=== PATIENT | male | born 1980 | race Caucasian/White ===

== ENCOUNTER 2023-11-08 01:48 | Emergency (ER) | payer SELFPAY ==
[2023-11-08 01:56] VITALS: BP 137/87; PULSE 90; RESP 20; TEMP 36.6; O2SAT 100; BMI 22.8
--- NOTE | 2023-11-08 01:56 | ECG_ITS ---
[facility] Test Date: 2023-11-08 Pat Name: Kevan Zazueta Department: Room: Gender: Male [employer]: : 1980 Requested By: Aylin Xavier Order Number: [id number] Juan MD: Khushboo Sharma M.D. Measurements Intervals [place] Rate: 96 P: 68 [place]: 108 QRS: 71 QRSD: 91 T: 56 QT: 360 QTc: 457 Interpretive Statements SINUS RHYTHM WITH SHORT [place] INTERVAL POSSIBLE LEFT ATRIAL ENLARGEMENT [-0.1mV P-WAVE IN V1/V2] No previous ECG available for comparison Electronically Signed On 11-09-2023 20:15:20 CDT by Khushboo Sharma M.D. [email or web address]
--- NOTE | 2023-11-08 01:56 | XRR_ITS ---
PROCEDURE INFORMATION: Exam: XR Chest Exam date and time: 11/08/2023 2:48 AM Age: 43 years old Clinical indication: Chest pressure; Patient HX: PT C/O chest pain over last few days. Tachycardic on monitor; Additional info: Cp TECHNIQUE: Imaging protocol: Radiologic exam of the chest. Views: 1 view. COMPARISON: No relevant prior studies available. FINDINGS: Lungs: Multiple left basilar lung nodules are present. Partially calcified hilar lymph nodes are present. Pleural spaces: Unremarkable. No pleural effusion. No pneumothorax. Heart/Mediastinum: Unremarkable. No cardiomegaly. Bones/joints: Mild dextroconvex curvature of the midthoracic spine. Incompletely fused mid shaft left clavicle fracture. XR/XR chest 1V portable [id number] IMPRESSION: 1. No acute cardiopulmonary findings. 2. Left lower lobe nodules which can be better assessed by CT on an outpatient basis (likely granulomas). 3. Sequela of granulomatous disease
--- NOTE | 2023-11-08 02:07 | ED_ITS ---
HPI - Chest Pain General: Chief Complaint: Chest Pain Stated Complaint: Chest pain, Palpitations Time Seen by Provider: 11/08/23 01:54 Source: patient Mode of arrival: ambulatory Limitations: no limitations History of Present Illness: 43-year-old male who states has been hav ing chest pain for the last 4 days. States pains been sharp in nature he denies any cough or fever. States he feels like his heart is racing as well. Has been having some back pain. He has history of drug abuse states he did use heroin meth and cocaine 2 or 3 days ago. Associated symptoms: Deny abdominal pain, dyspnea, fever(s), nausea or vomiting Review of Systems Const: Denies: fever(s), chills, body aches or change in appetite Eyes: Denies: blurry vision or eye discomfort ENMT: Denies: throat pain or dental pain Card: Reports: chest pain Resp: Denies: dyspnea GI: Denies: abdominal pain, nausea, vomiting or diarrhea Musc: Reports: back pain; Denies: neck pain Skin/Breast: Denies: rash Neuro: Denies: headache(s) Physical Exam Const: COMMON NORMALS: no acute distress, patient oriented x3 and healthy appearing HENMT: COMMON NORMALS: normocephalic and atraumatic HEAD & SCALP: normocephalic and atraumatic Eye: COMMON NORMALS: Equal, round and reactive pupils present and EOMs intact bilaterally PUPIL: Yes Equal, round and reactive pupils present Neck/C-Spine: COMMON NORMALS: full ROM and supple Chest: COMMONS NORMALS: normal inspection of the chest and normal palpation of entire chest wall Resp: COMMON NORMALS: normal respiratory effort, No retractions, No use of accessory muscles and clear to auscultation bilaterally AUSCULTATION: clear to auscultation bilaterally Cardio: COMMON NORMALS: regular rate, regular rhythm and No murmurs present (Cardio) RATE: regular rate RHYTHM: regular rhythm GI: COMMON NORMALS: Normal to inspection, nondistended, normoactive bowel sounds present, Soft to palpation, non-tender and no masses PALPATION: Yes Soft to palpation Extremity: COMMON NORMALS: normal to inspection and full ROM Neuro: COMMON NORMALS: patient oriented x3, moves all extremities and no focal motor deficits Psych: COMMON NORMALS: mental status grossly normal, Normal thought process present and cooperative THOUGHT PROCESS: Normal thought process present Skin: COMMON NORMALS: no rashes or lesions noted and no wounds GENERAL SKIN EXAM: no rashes or lesions noted Course Vital Signs: Vital signs: Vital Signs Temperature 98 F 11/08/23 01:56 Pulse Rate 90 11/08/23 01:56 Respiratory Rate 20 H 11/08/23 01:56 Blood Pressure 137/87 11/08/23 01:56 Pulse Oximetry 100 11/08/23 01:56 Oxygen Delivery Me thod Aerosol Mask 11/08/23 01:56 MDM - Chest Pain Medical Decision Making Patient presented here with chest pain he left I was unable to speak to him before he left I did not know that he left he had gotten upset and left the ER. Medical Records I reviewed the patient's medical records. All radiology interpretation(s) finalized by discharge EKG Data EKG 1: I personally reviewed and interpreted this EKG as follows: EKG interpretation date: 11/08/23 EKG interpretation time: 01:58 Interpretation: nsr hr [address] elevation qrs 91 qtc 414 Discharge Plan Discharge Patient Disposition: Left Against Medical Advice Clinical Impression: Chest pain Condition: Stable Coding Level of Care Code ED [employer] for Mitali Nichole
[2023-11-08] MEDS: LORazepam 2 mg/mL INJ 10 mL MDV IVP (02:30)
--- NOTE | 2023-11-08 04:10 | PC.NURSE ---
pt vitals this nurse placed leads/ o2 sat multiple times and pt repeatedly removed them.
== END 2023-11-08 04:13 | disposition left against medical advice (07) ==
PROVIDERS: Emergency Provider Emergency Medicine
DX: R07.9 Chest pain, unspecified (principal); Z53.29 Procedure and treatment not carried out because of patient's decision for other reasons
CPT/HCPCS: 71045; 93005; 96374; 99285; J2060